=== PATIENT | female | born 1945 | race Caucasian/White ===

== ENCOUNTER 2019-05-08 12:43 | Emergency (ER) | payer OTHER ==
[~2019-05-08] VITALS: Ht 152.4 cm; Wt 76.2 kg
[2019-05-08 13:04] VITALS: BP 145/96
[2019-05-08 13:35] LABS: Basophils # (auto) 0.1 uL; Eosinophils # (auto) 0.1 uL; Eosinophils % (auto) 0.9 % (0.0-7.0); Lymphocytes # (auto) 1.6 uL; Monocytes # (auto) 0.7 uL
[2019-05-08 13:36] LABS: Basophils % (auto) 0.6 % (0.0-2.0); Hematocrit 40.5 % (36.0-46.0); Hemoglobin 13.5 g/dL (12.2-16.2); Lymphocytes % (auto) 14.7 % (10.0-50.0); Mean Corpuscular Hemoglobin 30.1 pg (28.0-32.0); Mean Corpuscular Hgb Conc. 33.4 g/dL (32.0-36.0); Mean Corpuscular Volume 90.1 fL (80.0-100.0); Monocytes % (auto) 6.6 % (0.0-12.0); Neutrophils # (auto) 8.3 uL; Neutrophils % (auto) 77.2 % (37.0-80.0); Platelet Count (auto) 447 10^3/uL (140-450); Red Blood Cells 4.49 10^6/uL (4.0-5.20); Red Cell Distribution Width 13.1 % (11.8-14.3); White Blood Cell 10.7 10^3/uL (4.4-10.8)
[2019-05-08 13:49] LABS: Albumin 3.7 g/dL (3.4-5.0); Anion Gap 7 (5-15); Blood Urea Nitrogen 13 mg/dL (7-18); Calcium 9.5 mg/dL (8.5-10.1); Carbon Dioxide 24 mmol/L (21-32); Chloride 110 mmol/L (98-107); Glucose 108 mg/dL (74-106); Sodium 141 mmol/L (136-145)
[2019-05-08 13:55] LABS: Alanine Aminotransferase 21 U/L (13-56); Alkaline Phosphatase 148 U/L (45-117); Aspartate Aminotransferase 16 U/L (15-37); BUN/Creatinine Ratio 16.3; Bilirubin, Total 0.3 mg/dL (0.2-1.0); GFR African American 91 mL/min; GFR Non-African American 75 mL/min; Total Protein 8.1 g/dL (6.4-8.2)
== END 2019-05-08 17:06 | disposition home or self-care (01) ==
LOC: ER 12:47
DX: J20.9 Acute bronchitis, unspecified (principal); H10.9 Unspecified conjunctivitis; H53.2 Diplopia
CPT/HCPCS: 36415; 70450; 71045; 80053; 84484; 85025

== ENCOUNTER 2021-01-31 15:18 | Inpatient (IN) | payer OTHER ==
[~2021-01-31] VITALS: Ht 152.4 cm; Wt 82.5 kg
[2021-01-31 16:14] LABS: Basophils # (auto) 0.1 10 ^3/uL (0-0.2); Eosinophils # (auto) 0.1 10 ^3/uL (0-0.8); Lymphocytes # (auto) 1.4 10 ^3/uL (0.4-5.4); Monocytes # (auto) 0.6 10 ^3/uL (0-1.3); Neutrophils # (auto) 5.8 10 ^3/uL (1.6-8.6); Neutrophils % (auto) 72.7 % (37.0-80.0)
[2021-01-31 16:15] LABS: Basophils % (auto) 0.9 % (0.0-2.0); Eosinophils % (auto) 0.8 % (0.0-7.0); Hematocrit 30.1 % (36.0-46.0); Hemoglobin 9.3 g/dL (12.2-16.2); Lymphocytes % (auto) 17.8 % (10.0-50.0); Mean Corpuscular Hemoglobin 23.2 pg (28.0-32.0); Mean Corpuscular Hgb Conc. 30.9 g/dL (32.0-36.0); Mean Corpuscular Volume 74.9 fL (80.0-100.0); Monocytes % (auto) 7.8 % (0.0-12.0); Red Blood Cells 4.02 10^6/uL (4.0-5.20)
[2021-01-31 16:32] LABS: Albumin 3.4 g/dL (3.4-5.0); Calcium 9.2 mg/dL (8.5-10.1); Potassium 4.1 mmol/L (3.5-5.1)
[2021-01-31 16:37] LABS: BUN/Creatinine Ratio 14.1; Bilirubin, Total 0.2 mg/dL (0.2-1.0); Total Protein 7.9 g/dL (6.4-8.2)
[2021-01-31] MEDS ORDERED: PANTOPRAZOLE 80 MG in SODIUM CHL 0.9% 80 ML IV ONE (20:00)
[2021-01-31] MEDS ORDERED: PANTOPRAZOLE 40mg/50ML NS AE 50 ML IV ONE (20:30)
[2021-02-01 03:29] LABS: Hematocrit 29.8 % (36.0-46.0); Hemoglobin 9.5 g/dL (12.2-16.2)
[2021-02-01] MEDS ORDERED: SODIUM CHLORIDE 0.9% 1,000 ML IV SCH (05:15)
[2021-02-01] MEDS ORDERED: ONDANSETRON HCL 4 MG/2 ML VIAL IV PRN (05:15)
[2021-02-01 07:23] LABS: INR 1.04 (0.9-1.15); Partial Thromboplastin Time 25.7 sec (23.6-33.0)
[2021-02-01 07:27] LABS: Potassium 3.5 mmol/L (3.5-5.1)
[2021-02-01 07:31] LABS: BUN/Creatinine Ratio 16.5
[2021-02-01] MEDS ORDERED: LEVOTHYROXINE SODIUM 88 MCG TAB ONE (08:32)
[2021-02-01 08:47] LABS: Urine Bacteria NONE SEEN /hpf (None Seen); Urine Blood Negative /uL (Negative); Urine Hyaline Cast FEW /lpf (0 - 2); Urine Specific Gravity 1.009 (1.001-1.035); Urine WBC 2 /hpf (0 - 5)
[2021-02-01] MEDS ORDERED: ALPRAZolam 0.25 MG TAB PO SCH (10:15)
[2021-02-01] MEDS: SODIUM CHLORIDE 0.9% 1,000 ML IV SCH ×2 (11:37→16:00)
[2021-02-01] MEDS: PANTOPRAZOLE 40 MG/10 ML VIAL INJ IV SCH (11:39)
[2021-02-01] MEDS ORDERED: GABAPENTIN 100 MG CAP PO PRN (17:45)
[2021-02-01] MEDS ORDERED: LEVO88TA4 PO (17:47)
[2021-02-01] MEDS ORDERED: GAB100C PO (17:47)
[2021-02-01] MEDS ORDERED: ROSU1TAB12 PO (17:47)
[2021-02-01] MEDS ORDERED: MULTTAB99 PO (17:50)
[2021-02-01] MEDS ORDERED: ASCO500T11 PO (17:50)
[2021-02-01] MEDS ORDERED: BIOT10004 PO (17:50)
[2021-02-01] MEDS ORDERED: CYAN-17 PO (17:50)
[2021-02-01] MEDS ORDERED: ZINC220C8 PO (17:50)
[2021-02-01 22:38] VITALS: BP 147/89
[2021-02-01 23:08] VITALS: BP 147/89
[2021-02-02] VITALS (8 sets, daily range): BP systolic 124–152; BP diastolic 58–85
[2021-02-02] MEDS: SODIUM CHLORIDE 0.9% 1,000 ML IV SCH (02:15)
[2021-02-02] MEDS: LEVOTHYROXINE SODIUM 88 MCG TAB PO SCH (07:11)
[2021-02-02 07:23] LABS: Basophils # (auto) 0 10 ^3/uL (0-0.2); Basophils % (auto) 0.7 % (0.0-2.0); Eosinophils # (auto) 0.2 10 ^3/uL (0-0.8); Eosinophils % (auto) 3.4 % (0.0-7.0); Hematocrit 25.7 % (36.0-46.0); Hemoglobin 8.2 g/dL (12.2-16.2); Lymphocytes # (auto) 1.6 10 ^3/uL (0.4-5.4); Lymphocytes % (auto) 27.9 % (10.0-50.0); Mean Corpuscular Hemoglobin 24.2 pg (28.0-32.0); Mean Corpuscular Hgb Conc. 32.1 g/dL (32.0-36.0); Mean Corpuscular Volume 75.6 fL (80.0-100.0); Monocytes # (auto) 0.5 10 ^3/uL (0-1.3); Monocytes % (auto) 9.4 % (0.0-12.0); Neutrophils # (auto) 3.4 10 ^3/uL (1.6-8.6); Neutrophils % (auto) 58.6 % (37.0-80.0); Nucleated Red Blood Cells % 0.1 %; Red Cell Distribution Width 21.2 % (11.8-14.3); White Blood Cell 5.7 10^3/uL (4.4-10.8)
[2021-02-02 07:30] LABS: Potassium 4.6 mmol/L (3.5-5.1)
[2021-02-02 07:37] LABS: Albumin 3.1 g/dL (3.4-5.0); BUN/Creatinine Ratio 18.4; Bilirubin, Total 0.2 mg/dL (0.2-1.0); Calcium 8.9 mg/dL (8.5-10.1); Total Protein 6.4 g/dL (6.4-8.2)
[2021-02-02] MEDS: PANTOPRAZOLE 40 MG/10 ML VIAL INJ IV SCH (09:19)
[2021-02-02] MEDS: CYANOCOBALAMIN 500 MCG TAB PO SCH (09:20)
[2021-02-02] MEDS: MULTIPLE VITAMIN TAB PO SCH (09:20)
[2021-02-02] MEDS ORDERED: ZINC SULFATE 220mg CAP or TAB PO SCH (10:00)
[2021-02-02] MEDS ORDERED: LEVOTHYROXINE SODIUM 88 MCG TAB PO SCH (10:00)
[2021-02-02] MEDS ORDERED: ASCORBIC ACID 500 MG TAB PO SCH (10:00)
[2021-02-02] MEDS: BIOTIN 1000 MCG PO SCH (10:00)
[2021-02-02] MEDS ORDERED: hydrALAZINE HCL 20 MG/ML VL IV PRN (13:00)
[2021-02-02] MEDS ORDERED: ACETAMINOPHEN 325 MG TAB PO PRN (13:00)
[2021-02-02] MEDS ORDERED: ONDANSETRON HCL 4 MG/2 ML VIAL IV PRN (13:00)
[2021-02-02] MEDS ORDERED: HYDROcodone-ACET 5/325MG TAB PO PRN (13:00)
[2021-02-02] MEDS ORDERED: GOLYTELY 4L KIT PO ONE (14:00)
[2021-02-02 14:37] LABS: Cholesterol 195 mg/dL (< 200); HDL Cholesterol 46 mg/dL (40-59); LDL Cholesterol 120 mg/dL (< 100); Triglycerides 229 mg/dL (< 150)
[2021-02-03] VITALS (7 sets, daily range): BP systolic 112–150; BP diastolic 58–82
[2021-02-03 06:05] LABS: Basophils # (auto) 0.1 10 ^3/uL (0-0.2); Eosinophils # (auto) 0.1 10 ^3/uL (0-0.8); Hemoglobin 7.7 g/dL (12.2-16.2); Lymphocytes # (auto) 1.5 10 ^3/uL (0.4-5.4); Mean Corpuscular Volume 75.6 fL (80.0-100.0); Nucleated Red Blood Cells % 0.1 %
[2021-02-03 06:08] LABS: Basophils % (auto) 1.3 % (0.0-2.0); Eosinophils % (auto) 2.1 % (0.0-7.0); Hematocrit 24.8 % (36.0-46.0); Lymphocytes % (auto) 28.7 % (10.0-50.0); Mean Corpuscular Hemoglobin 23.6 pg (28.0-32.0); Mean Corpuscular Hgb Conc. 31.2 g/dL (32.0-36.0); Monocytes # (auto) 0.5 10 ^3/uL (0-1.3); Monocytes % (auto) 9.7 % (0.0-12.0); Neutrophils # (auto) 3.1 10 ^3/uL (1.6-8.6); Neutrophils % (auto) 58.2 % (37.0-80.0); Red Blood Cells 3.28 10^6/uL (4.0-5.20); White Blood Cell 5.4 10^3/uL (4.4-10.8)
[2021-02-03] MEDS: LEVOTHYROXINE SODIUM 88 MCG TAB PO SCH (06:39)
[2021-02-03 06:43] LABS: Red Cell Distribution Width 21.3 % (11.8-14.3)
[2021-02-03 07:30] LABS: BUN/Creatinine Ratio 15.4; Calcium 8.8 mg/dL (8.5-10.1)
[2021-02-03] MEDS: PANTOPRAZOLE 40 MG/10 ML VIAL INJ IV SCH (09:17)
[2021-02-03] MEDS: CYANOCOBALAMIN 500 MCG TAB PO SCH (09:18)
[2021-02-03] MEDS: MULTIPLE VITAMIN TAB PO SCH (09:18)
[2021-02-03] MEDS: BIOTIN 1000 MCG PO SCH (09:19)
[2021-02-03] MEDS: MIDAZOLAM HCL 5 MG/ML-1ML VIAL ONE ×3 (10:28→10:37)
[2021-02-03] MEDS: fentaNYL CITRATE 100 MCG/2 ML VL ONE ×3 (10:28→10:37)
[2021-02-03] MEDS ORDERED: diphenhdrAMINE HCL 50 MG/1 ML VL IV ONE (10:31)
[2021-02-03] MEDS ORDERED: MIDAZOLAM HCL 5 MG/ML-1ML VIAL IV ONE (10:42)
[2021-02-03] MEDS ORDERED: fentaNYL CITRATE 100 MCG/2 ML VL IV ONE (10:42)
[2021-02-03 16:45] LABS: % Iron Saturation 8.5 % (15-50)
[2021-02-03] MEDS: SOD CHL 0.45% 1,000 ML IV SCH (19:00)
[2021-02-03 19:17] LABS: Hematocrit 25.4 % (36.0-46.0)
[2021-02-04 04:38] VITALS: BP 137/68
[2021-02-04] MEDS: LEVOTHYROXINE SODIUM 88 MCG TAB PO SCH (06:49)
[2021-02-04 07:17] LABS: Basophils # (auto) 0 10 ^3/uL (0-0.2); Basophils % (auto) 0.6 % (0.0-2.0); Eosinophils # (auto) 0.1 10 ^3/uL (0-0.8); Eosinophils % (auto) 1.9 % (0.0-7.0); Hematocrit 27.8 % (36.0-46.0); Lymphocytes # (auto) 1.9 10 ^3/uL (0.4-5.4); Lymphocytes % (auto) 27.8 % (10.0-50.0); Mean Corpuscular Hemoglobin 24.3 pg (28.0-32.0); Mean Corpuscular Hgb Conc. 32.2 g/dL (32.0-36.0); Mean Corpuscular Volume 75.2 fL (80.0-100.0); Monocytes # (auto) 0.4 10 ^3/uL (0-1.3); Monocytes % (auto) 6.1 % (0.0-12.0); Neutrophils # (auto) 4.3 10 ^3/uL (1.6-8.6); Neutrophils % (auto) 63.6 % (37.0-80.0); Nucleated Red Blood Cells % 0.1 %; Red Cell Distribution Width 21.5 % (11.8-14.3); White Blood Cell 6.7 10^3/uL (4.4-10.8)
[2021-02-04 07:20] LABS: BUN/Creatinine Ratio 13.8; Potassium 3.8 mmol/L (3.5-5.1)
[2021-02-04] MEDS ORDERED: FLUMAZENIL 0.1 MG/ML INJ 10ML MDV IV ONE (07:45)
[2021-02-04] MEDS ORDERED: diphenhdrAMINE HCL 50 MG/1 ML VL ONE (07:45)
[2021-02-04] MEDS ORDERED: SODIUM CHLORIDE LOCK 10 ML ONE (07:45)
[2021-02-04] MEDS ORDERED: LIDOCAINE VISCOUS 2% 15ML UD ONE (07:45)
[2021-02-04] MEDS: MIDAZOLAM HCL 5 MG/ML-1ML VIAL ONE ×3 (08:03→08:11)
[2021-02-04] MEDS: fentaNYL CITRATE 100 MCG/2 ML VL ONE ×3 (08:03→08:11)
[2021-02-04] MEDS: MULTIPLE VITAMIN TAB PO SCH (09:50)
[2021-02-04] MEDS: CYANOCOBALAMIN 500 MCG TAB PO SCH (09:51)
[2021-02-04] MEDS: SOD CHL 0.45% 1,000 ML IV SCH (09:58)
[2021-02-04] MEDS: BIOTIN 1000 MCG PO SCH (09:58)
[2021-02-04] MEDS ORDERED: PANTOPRAZOLE 40 MG TAB PO SCH (10:00)
[2021-02-04] MEDS ORDERED: PANT40TA2 PO (11:18)
[2021-02-04] MEDS ORDERED: IOHEXOL 350 MG/ML 100ML IJ ONE (11:57)
[2021-02-04 12:44] VITALS: BP 145/88
== END 2021-02-04 15:30 | disposition home or self-care (01) | DRG 394 ==
LOC: ER 15:18 → OVERFLOW 02-01 05:15 → CENTRAL 02-01 21:54
PROVIDERS: ADMIT Nurse Practitioner; ATTEND Internal Medicine
PROC: 0DJD8ZZ Inspection of Lower Intestinal Tract, Via Natural or Artificial Opening Endoscopic (ICD-10-PCS; principal; 2021-02-03 10:22)
PROC: 0DB68ZX Excision of Stomach, Via Natural or Artificial Opening Endoscopic, Diagnostic (ICD-10-PCS; 2021-02-04)
DX: K64.8 Other hemorrhoids (principal); N17.9 Acute kidney failure, unspecified; K64.4 Residual hemorrhoidal skin tags; K57.30 Diverticulosis of large intestine without perforation or abscess without bleeding; D50.0 Iron deficiency anemia secondary to blood loss (chronic); E03.9 Hypothyroidism, unspecified; R07.9 Chest pain, unspecified; E66.01 Morbid (severe) obesity due to excess calories; I10 Essential (primary) hypertension; K44.9 Diaphragmatic hernia without obstruction or gangrene; Z20.822 Contact with and (suspected) exposure to COVID-19; I95.9 Hypotension, unspecified; R53.83 Other fatigue; Z88.0 Allergy status to penicillin; Z68.34 Body mass index [BMI] 34.0-34.9, adult
CPT/HCPCS: 36415; 43239; 45378; 71045; 71250; 71275; 74176; 80048; 80053; 80061; 81001; 82728; 83540; 83550; 83880; 84484; 85014; 85018; 85025; 85379; 85610; 85730; 86850; 86900; 86901; 87426; 93005; 93306; 93970; 96365; 96366; C9113; G0378; J2250

== ENCOUNTER 2023-01-31 11:44 | Emergency (ER) | payer OTHER ==
[~2023-01-31] VITALS: Ht 152.4 cm; Wt 75.4 kg
[~2023-01-31 11:44] MED LIST: ASCO500T11 PO; BIOT10004 PO; CYAN-17 PO; GAB100C PO; LEVO88TA4 PO; MULTTAB99 PO; PANT40TA2 PO; ROSU1TAB12 PO; ZINC220C8 PO
[2023-01-31 12:43] LABS: Urine Bacteria FEW /hpf (None Seen); Urine Blood Negative /uL (Negative); Urine Clarity Clear (Clear); Urine Color STRAW (Yellow); Urine Protein, UAD Negative (Negative); Urine Specific Gravity 1.003 (1.001-1.035); Urine Urobilinogen Normal (Negative); Urine WBC 1 /hpf (0 - 5)
[2023-01-31 13:19] LABS: Basophils # (auto) 0 10 ^3/uL (0-0.2); Eosinophils # (auto) 0 10 ^3/uL (0-0.8); Eosinophils % (auto) 0.5 % (0.0-7.0); Hemoglobin 9.9 g/dL (12.2-16.2); Lymphocytes # (auto) 0.9 10 ^3/uL (0.4-5.4); Monocytes # (auto) 0.4 10 ^3/uL (0-1.3); White Blood Cell 6.5 10^3/uL (4.4-10.8)
[2023-01-31 13:21] LABS: Basophils % (auto) 0.6 % (0.0-2.0); Hematocrit 29.6 % (36.0-46.0); Lymphocytes % (auto) 13.8 % (10.0-50.0); Mean Corpuscular Hemoglobin 31.7 pg (28.0-32.0); Mean Corpuscular Hgb Conc. 33.3 g/dL (32.0-36.0); Mean Corpuscular Volume 95.2 fL (80.0-100.0); Monocytes % (auto) 5.5 % (0.0-12.0); Neutrophils # (auto) 5.1 10 ^3/uL (1.6-8.6); Neutrophils % (auto) 79.6 % (37.0-80.0); Red Blood Cells 3.11 10^6/uL (4.0-5.20); Red Cell Distribution Width 13.9 % (11.8-14.3)
[2023-01-31 13:27] LABS: Alanine Aminotransferase 21 U/L (7-40); Alkaline Phosphatase 100 U/L (46-116); Anion Gap 5 (5-15); Aspartate Aminotransferase 15 U/L (13-40); BUN/Creatinine Ratio 10.8 (10.0-20.0); Blood Urea Nitrogen 12 mg/dL (9-23); Calcium 10.2 mg/dL (8.7-10.4); Carbon Dioxide 27 mmol/L (20-30); Chloride 110 mmol/L (98-107); Glucose 105 mg/dL (74-106); Lipase 49 U/L (12-53); Potassium 4.8 mmol/L (3.5-5.1); Sodium 142 mmol/L (136-145)
[2023-01-31 13:28] LABS: Albumin 4.7 g/dL (3.2-4.8); Bilirubin, Total 0.3 mg/dL (0.2-1.0); Total Protein 6.9 g/dL (5.7-8.2)
[2023-01-31 13:31] LABS: Free T3 2.9 pg/mL (2.3-4.2); Free T4 (Free Thyroxine) 1.3 ng/dL (0.89-1.76)
[2023-01-31 13:39] LABS: INR 0.98 (0.9-1.15); Prothrombin Time 10.3 sec (9.3-11.8)
[2023-01-31] MEDS ORDERED: NITR-87 PO (13:50)
[2023-01-31 16:00] VITALS: BP 140/71; PULSE 74; RESP 16; TEMP 98.2; O2SAT 99
== END 2023-01-31 17:20 | disposition home or self-care (01) ==
LOC: ER 11:44
DX: R42 Dizziness and giddiness (principal); N39.0 Urinary tract infection, site not specified; I10 Essential (primary) hypertension; Z86.2 Personal history of diseases of the blood and blood-forming organs and certain disorders involving the immune mechanism
CPT/HCPCS: 36415; 70450; 71045; 71250; 80053; 81001; 83690; 84439; 84443; 84481; 84484; 85025; 85610; 93005

== ENCOUNTER 2023-03-08 20:14 | Emergency (ER) | payer OTHER ==
[~2023-03-08] VITALS: Ht 152.4 cm; Wt 76.0 kg
[~2023-03-08 20:14] MED LIST changes: +NITR-87 PO
[2023-03-08 21:34] LABS: Urine Bacteria FEW /hpf (None Seen); Urine Blood Negative /uL (Negative); Urine Clarity Clear (Clear); Urine Color Colorless (Yellow); Urine Protein, UAD Negative (Negative); Urine Specific Gravity 1.006 (1.001-1.035); Urine Urobilinogen Normal (Negative); Urine WBC 15 /hpf (0 - 5)
[2023-03-08 21:44] LABS: Basophils # (auto) 0.1 10 ^3/uL (0-0.2); Basophils % (auto) 1.2 % (0.0-2.0); Eosinophils # (auto) 0.1 10 ^3/uL (0-0.8); Eosinophils % (auto) 0.9 % (0.0-7.0); Hematocrit 34.8 % (36.0-46.0); Hemoglobin 11.5 g/dL (12.2-16.2); Lymphocytes # (auto) 1.3 10 ^3/uL (0.4-5.4); Lymphocytes % (auto) 18.3 % (10.0-50.0); Mean Corpuscular Hemoglobin 30.6 pg (28.0-32.0); Mean Corpuscular Hgb Conc. 32.9 g/dL (32.0-36.0); Monocytes # (auto) 0.5 10 ^3/uL (0-1.3); Monocytes % (auto) 7.2 % (0.0-12.0); Neutrophils # (auto) 5.1 10 ^3/uL (1.6-8.6); Neutrophils % (auto) 72.4 % (37.0-80.0); Nucleated Red Blood Cells % 0.1 %; Red Blood Cells 3.74 10^6/uL (4.0-5.20); Red Cell Distribution Width 14.5 % (11.8-14.3); White Blood Cell 7.1 10^3/uL (4.4-10.8)
[2023-03-08] MEDS ORDERED: ALPRAZolam 0.5 MG TAB PO ONE (21:45)
[2023-03-08 22:03] LABS: Alanine Aminotransferase 16 U/L (7-40); Albumin 4.8 g/dL (3.2-4.8); Alkaline Phosphatase 105 U/L (46-116); Anion Gap 9 (5-15); Aspartate Aminotransferase 14 U/L (13-40); BUN/Creatinine Ratio 17.6 (10.0-20.0); Blood Urea Nitrogen 19 mg/dL (9-23); Calcium 10.8 mg/dL (8.7-10.4); Carbon Dioxide 25 mmol/L (20-30); Chloride 108 mmol/L (98-107); Glucose 106 mg/dL (74-106); Sodium 142 mmol/L (136-145)
[2023-03-08 22:04] LABS: Bilirubin, Total 0.2 mg/dL (0.2-1.0); Total Protein 7.4 g/dL (5.7-8.2)
[2023-03-09] MEDS ORDERED: SULFAMETHOX W/TRIMETH(800/160MG) DS TAB PO ONE (00:15)
[2023-03-09] MEDS ORDERED: levoFLOXacin 500 MG TAB PO ONE (00:30)
[2023-03-09] MEDS ORDERED: LEVO500T91 PO (00:39)
[2023-03-09] MEDS ORDERED: ALPR0.5T PO (00:39)
[2023-03-09 00:40] VITALS: BP 170/89; PULSE 91; RESP 14; TEMP 98.1; O2SAT 98
== END 2023-03-09 00:59 | disposition home or self-care (01) ==
LOC: ER 20:14
DX: F41.9 Anxiety disorder, unspecified (principal); N39.0 Urinary tract infection, site not specified; I10 Essential (primary) hypertension; Z88.1 Allergy status to other antibiotic agents
CPT/HCPCS: 36415; 80053; 81001; 84484; 85025; 93005